=== PATIENT | male | born 1960 | race Hispanic/Latino ===

== ENCOUNTER 2020-10-25 22:50 | Inpatient (IN) | payer SELFPAY ==
[~2020-10-25] VITALS: Ht 185.4 cm; Wt 90.9 kg
[2020-10-25 23:13] LABS: BASOPHILS % (AUTO) 0.4 % (0.0-5.0); EOSINOPHILS % (AUTO) 0.6 % (0.0-8.0); LYMPHOCYTES % (AUTO) 18.6 % (21.0-51.0); MEAN CORPUSCULAR HEMOGLOBIN 30.8 pg (27.0-33.0); MEAN CORPUSCULAR VOLUME 87.9 fL (79-99); MONOCYTES % (AUTO) 8.9 % (3.0-13.0); NEUTROPHILS % (AUTO) 70.7 % (40.0-77.0); PLATELET COUNT (AUTO) 221 K/uL (130-400); RED BLOOD CELL COUNT(AUTO) 5.46 MIL/uL (4.50-6.20); RED CELL DISTRIBUTION WIDTH 14.3 % (11.0-15.5); WHITE BLOOD COUNT (AUTO) 7.9 K/uL (4.8-10.8)
[2020-10-25 23:18] LABS: APPEARANCE,URINE Clear (CLEAR); BILIRUBIN,URINE Negative (NEGATIVE); COLOR,URINE Yellow (YELLOW); GLUCOSE, URINE (UA) Negative (NEGATIVE); KETONES,URINE 15 mg/dL (NEGATIVE); LEUKOCYTE ESTERASE ,URINE Negative (NEGATIVE); NITRATE,URINE Negative (NEGATIVE); OCCULT BLOOD,URINE Negative (NEGATIVE); PH,URINE 5.5 (5.0-8.0); PROTEIN,URINE Negative (NEGATIVE)
[2020-10-25] MEDS ORDERED: NITROGLYCERIN 1GM/1 INCH PACKET TD ONE (23:40)
[2020-10-25 23:42] LABS: INR 0.98 (0.85-1.15); PROTHROMBIN TIME 10.5 SEC (9.6-11.6)
[2020-10-25 23:42] LABS: AMPHET/METH SCREEN,URINE POSITIVE (NEGATIVE); BARBITURATE SCREEN, URINE NEGATIVE (NEGATIVE); BENZODIAZEPINES SCREEN,URINE NEGATIVE (NEGATIVE); CANNABINOID SCREEN,URINE NEGATIVE (NEGATIVE); COCAINE SCREEN,URINE POSITIVE (NEGATIVE); OPIATE SCREEN,URINE NEGATIVE (NEGATIVE); PHENCYCLIDINE SCREEN,URINE NEGATIVE (NEGATIVE)
[2020-10-25 23:43] LABS: ALBUMIN 3.6 g/dL (3.5-5.0); BILIRUBIN,TOTAL 0.9 mg/dL (0.2-1.0); PARTIAL THROMBOPLASTIN TIME 26.5 SEC (26.3-35.5); TOTAL PROTEIN, SERUM 6.8 g/dL (6.0-8.3)
[2020-10-26] MEDS ORDERED: ACETAMINOPHEN 325 MG TAB PO PRN ×2 (01:00)
[2020-10-26] MEDS ORDERED: MORPHINE SULFATE 2 MG/ML 1ML SYG IVP PRN (01:00)
[2020-10-26] MEDS: NITROGLYCERIN 1GM/1 INCH PACKET TD SCH ×3 (01:00→17:20)
[2020-10-26] MEDS ORDERED: ONDANSETRON HCL 4 MG/2 ML VIAL IV PRN (01:00)
[2020-10-26 06:23] LABS: BASOPHILS % (AUTO) 0.6 % (0.0-5.0); EOSINOPHILS % (AUTO) 2.4 % (0.0-8.0); HEMATOCRIT 44.8 % (42-54); MEAN CORPUSCULAR HEMOGLOBIN 30.2 pg (27.0-33.0); MEAN CORPUSCULAR HGB CONC 34.2 g/dL (32.0-36.0); MEAN CORPUSCULAR VOLUME 88.4 fL (79-99); MONOCYTES % (AUTO) 9.6 % (3.0-13.0); NEUTROPHILS % (AUTO) 60.8 % (40.0-77.0); PLATELET COUNT (AUTO) 198 K/uL (130-400); RED BLOOD CELL COUNT(AUTO) 5.07 MIL/uL (4.50-6.20); RED CELL DISTRIBUTION WIDTH 14.2 % (11.0-15.5); WHITE BLOOD COUNT (AUTO) 5.3 K/uL (4.8-10.8)
[2020-10-26 06:45] LABS: BILIRUBIN,TOTAL 0.8 mg/dL (0.2-1.0); CREATININE 1.5 mg/dL (0.5-1.5); POTASSIUM 4.3 mmol/L (3.5-5.1); THYROID STIMULATING HORMONE 0.72 uIU/mL (0.36-3.74)
[2020-10-26] MEDS ORDERED: FAMOTIDINE 20MG TAB 20 MG TAB ONE (07:42)
[2020-10-26] MEDS ORDERED: NITROGLYCERIN 1GM/1 INCH PACKET TD ONE (07:42)
[2020-10-26] MEDS ORDERED: ASPIRIN 81MG TAB.CHEW ONE (07:42)
[2020-10-26] MEDS: FAMOTIDINE 20MG TAB 20 MG TAB PO SCH (09:00)
[2020-10-26] MEDS: ASPIRIN 81MG TAB.CHEW PO SCH (09:00)
[2020-10-26 10:30] VITALS: BP 134/76
[2020-10-26 12:00] VITALS: BP_SYST 137; BP_SYST 92; BP_DIAS 55; BP_DIAS 70
[2020-10-26] MEDS: SODIUM CHLORIDE 0.9% 1000ML 1,000 ML IV SCH ×2 (14:35→17:00)
[2020-10-26 18:59] VITALS: BP_SYST 137; BP_SYST 99; BP_DIAS 55; BP_DIAS 76
[2020-10-26 21:15] VITALS: BP 150/73
[2020-10-27 03:58] VITALS: BP 161/93
[2020-10-27 08:40] VITALS: BP 148/79
[2020-10-27] MEDS: ASPIRIN 81MG TAB.CHEW PO SCH (08:50)
[2020-10-27] MEDS: NITROGLYCERIN 1GM/1 INCH PACKET TD SCH ×2 (08:51→17:14)
[2020-10-27] MEDS: FAMOTIDINE 20MG TAB 20 MG TAB PO SCH (08:56)
[2020-10-27 09:23] LABS: CREATININE 1.2 mg/dL (0.5-1.5)
[2020-10-27] MEDS ORDERED: GADODIAMIDE 10 MMOL/20 ML VIAL IV ONE (10:56)
[2020-10-27 16:54] VITALS: BP 150/70
[2020-10-27 19:00] VITALS: BP 151/84
[2020-10-28] VITALS: BP 127/57
[2020-10-28] MEDS: NITROGLYCERIN 1GM/1 INCH PACKET TD SCH ×3 (00:39→18:22)
[2020-10-28 04:00] VITALS: BP 150/77
[2020-10-28 08:00] VITALS: BP 136/65
[2020-10-28] MEDS: ASPIRIN 81MG TAB.CHEW PO SCH (08:55)
[2020-10-28] MEDS: FAMOTIDINE 20MG TAB 20 MG TAB PO SCH (08:55)
[2020-10-28 12:00] VITALS: BP 153/85
[2020-10-28 16:00] VITALS: BP 156/78
[2020-10-28] MEDS ORDERED: HYDROCHLOROTHIAZIDE 25 MG TABLET PO SCH (17:30)
[2020-10-28] MEDS ORDERED: ASPI-1005 PO (17:47)
[2020-10-28] MEDS ORDERED: HYDR12.54 PO (17:47)
[2020-10-28 20:20] VITALS: BP 152/72
== END 2020-10-28 21:40 | disposition home or self-care (01) | DRG 311 ==
LOC: EDH 22:50 → EDHIP 22:51 → OBSVTOIN 22:51 → 3CH 10-26 10:08
PROVIDERS: ADMIT Hospitalist; ATTEND Hospitalist
DX: I20.0 Unstable angina (principal); N28.9 Disorder of kidney and ureter, unspecified; F14.10 Cocaine abuse, uncomplicated; F31.9 Bipolar disorder, unspecified; Z20.828 Contact with and (suspected) exposure to other viral communicable diseases
CPT/HCPCS: 36415; 70450; 70553; 71045; 80048; 80053; 80061; 80305; 81003; 82550; 84443; 84484; 85025; 85610; 85730; 87426; 93005; 93306; A9579; G0378; J7030; U0003